=== PATIENT | female | born 1935 | race Caucasian/White ===

== ENCOUNTER 2018-11-03 06:44 | Day surgery (SDC) | payer OTHER ==
[~2018-11-03 06:44] MED LIST: ATORVASTATIN CA20 MG PO; LOTREL 10-40 M1 EACH PO; PLAVIX75 MG PO; SYNTHROID75 MCG PO
== END 2018-11-03 12:55 | disposition home or self-care (01) ==
LOC: CIR.AMB 06:44
DX: M67.442 Ganglion, left hand (principal)